=== PATIENT | male | born 1950 | race Caucasian/White ===

== ENCOUNTER 2016-09-10 17:22 | Inpatient (IN) | payer MEDICARE ==
--- NOTE | ~2016-09-10 | HP ---
Unit #: [id number] #: [id number] Patient: KIMBERLEY JULIO [id number] [facility]. [place], [place] [address] [id number] I MR#: [id number] NAME: KIMBERLEY JULIO. ROOM: 311 Age: 66 Sex: M Admission Date: 09/10/2016 : 1950 Attending Physician: Shad Buckley M.D. Primary Care Physician: Lizeth Dsouza M.D. HISTORY AND PHYSICAL CHIEF COMPLAINT Weakness, lightheadedness, dizziness. DISCUSSION This is a 66-year-old gentleman with past medical history of hypertension, coronary artery disease, previous stent, history of congestive heart failure, ejection fraction 20% to 25%, dyslipidemia, diabetes, history of gout, history of stroke in the past, seizure disorder, mood disorder. He is living in the assisted living personal shelter. He was brought to the emergency room with the chief complaint of weakness, lightheadedness, he said that he lives in personal shelter. He spent thirty minutes on Monday outside in the hot, so today lady told him that he is not acting right and he was brought to the emergency room. He said he feels like he has got hot when he was outside on Monday but he feels lightheaded, dizzy. EMS, blood pressure was found on lower side. Currently, he feels better. He is tachycardic on EKG and also on EKG heart rate is 113. He had been having low grade temperature in the ER, 100.1 but he denies any fever or chills, cough, nausea, vomiting, abdominal pain, chest pain or any other complaints. He just said he feels dizzy, weak, and lightheaded. PAST MEDICAL HISTORY 1. History of hypertension. 2. Coronary artery disease with three vessel stent four years ago. 3. History of congestive heart failure, ejection fraction 20% to 25%. 4. Dyslipidemia. 5. Diabetes. 6. Gout. 7. History of stroke in the past. CT scan shows old lacunar infarct. 8. History of seizures. 9. Mood disorder. PAST SURGICAL HISTORY History of cardiac cath and stent. ALLERGIES No known drug allergies. MEDICATIONS FROM HOME Is the followin. Lisinopril 10 mg daily 2. Haloperidol 4 mg p.o. daily 3. Lasix 40 mg daily 4. Remeron 15 mg at bedtime 5. Metformin 500 mg twice a day Unit #: [id number] #: [id number] Patient: KIMBERLEY JULIO 6. Keppra 500 mg twice a day 7. Allopurinol 300 mg daily 8. Plavix 75 mg daily 9. Simvastatin 40 mg daily 10. Potassium chloride 10 mEq p.o. twice a day 11. Celexa 20 mg daily 12. Metoprolol 25 mg p.o. twice daily SOCIAL HISTORY The patient has history of mental disability, does not smoke, does not drink, currently residing with his caregiver in personal shelter, assisted living. REVIEW OF SYSTEMS Negative except in the history of present illness. PHYSICAL EXAMINATION GENERAL: Elderly man, lying in the bed comfortably, currently not in any distress. He is alert, awake, and oriented x3, comfortable, not in any distress. VITAL SIGNS: Current vitals are the following, temperature 100.1, heart rate 110, respiratory rate 20, blood pressure 108/75. Oxygen 95% on room air. HEENT EXAMINATION: Pupils equal reactive to light and accommodation. Head: Normocephalic and atraumatic. NECK: Supple. No jugular venous distention. HEART: S1 and S2, regular rate and rhythm. LUNGS: Clear to auscultation bilaterally. No rhonchi. No wheezing. ABDOMEN: Soft, nontender, and nondistended. Bowel sounds are positive. EXTREMITIES: Inspection normal. No cyanosis, no clubbing, and no edema. NEUROLOGIC: Cranial nerves II through XII intact, no focal neurologic deficit. He has positive tremors on both extremities and the jaws. DIAGNOSTIC STUDIES LABORATORY: laboratory workup is the following, troponin less than 0.05, CPK 141, BNP 54, sodium 134, potassium 3.6, chloride 101, CO2 22, glucose 135, BUN 24, creatinine 1.3. LFT within normal limits. Urinalysis is negative. Troponin less than 0.05. Lactic acid 2.1. INR is 1.1, white count 5, hemoglobin 13, hematocrit 41, platelets 172. IMAGING: Chest x-ray is negative except left lower lobe atelectasis. CT head shows old lacunar infarct. ASSESSMENT/PLAN 1. Weakness, lightheadedness, near syncope with tremors, will observe the patient on monitor bed on telemetry, will ask neurology, Dr. Hartman to evaluate. 2. Sinus tachycardia, he clinically does not look in congestive heart failure, I will give him some IV fluids, one liter of normal saline, reevaluate in the morning. 3. Low grade fever, no source, will monitor repeat temperature in the morning. 4. Hypertension, with blood pressure lower side, hold metoprolol, lisinopril, if blood pressure less than 120. 5. History of coronary artery disease with three vessel stent four years ago. 6. History of congestive heart failure, ejection fraction 20% to 25%. Unit #: [id number] #: [id number] Patient: KIMBERLEY JULIO 7. Dyslipidemia. 8. Diabetes, continue metformin, place on sliding scale. 9. History of stroke. 10. History of gout. 11. History of seizures. 12. History of mood disorder. 13. DVT prophylaxis, will place the patient on Lovenox. Dictated by Norberto Felix TD: 09/11/2016 12:31 JOB #: [id number] HISTORY AND PHYSICAL Page 1 of 1 X X HISTORY AND PHYSICAL
--- NOTE | ~2016-09-10 | CO ---
Unit #: [id number] #: [id number] Patient: KIMBERLEY JULIO [id number] [facility]. [place], [place] [address] [id number] I MR#: [id number] NAME: KIMBERLEY JULIO ROOM: 311 Age: 66 Sex: M Admission Date: 09/11/2016 : 1950 Attending Physician: Shad Buckley M.D. Primary Care Physician: Lizeth Dsouza M.D. CONSULTATION REPORT REQUESTING PHYSICIAN Dr. Buckley. REASON FOR CONSULTATION Fever. HISTORY OF PRESENT ILLNESS This is a 66-year-old gentleman, who lives in assisted nursing facility. He does have multiple medical problems and was admitted through emergency room with fever, weakness, lightheadedness. He was found to have a fever of 101 and some dehydration. He told me that he remained in sun for quite sometime on Monday, following which he developed fever, lightheadedness, and generalized weakness. He did not have any leukocytosis. Chest x-ray and urinalysis were negative. He does not have any focal symptoms. At the present time, he is doing much better. He thinks he is almost back to normal. He denies any headache, cough, dysuria, abdominal pain, nausea, vomiting, or diarrhea at this time. PAST MEDICAL HISTORY Hypertension, coronary artery disease with history of PCI, congestive heart failure with EF of 20% to 25%, hyperlipidemia, diabetes, gout, previous stroke, history of seizure, and mood disorder. PAST SURGICAL HISTORY Cardiac stenting. ALLERGIES None. HOME MEDICATIONS Lisinopril, haloperidol, Lasix, Remeron, metformin, Keppra, allopurinol, Plavix, simvastatin, Celexa, metoprolol. In the hospital, he is on Zosyn, Zocor, Zestril, Zyloprim, Plavix, haloperidol, Keppra, furosemide, Toprol, Celexa, Tylenol, Remeron, NovoLog, Lovenox. PERSONAL HISTORY He lives in assisted nursing facility. No history of active alcohol, drug, or tobacco abuse. He told me that he does ambulate with assistance. FAMILY HISTORY Unknown. Unit #: [id number] #: [id number] Patient: KIMBERLEY JULIO SYSTEMIC REVIEW Fever, generalized weakness, and exhaustion. There are no other systemic symptoms on detailed symptomatic enquiry. PHYSICAL EXAMINATION GENERAL: Reveals an elderly white male, who is awake and alert, in no acute distress. He is fully conscious and oriented to time, place, and person. VITAL SIGNS: Temperature is 97.8 with a T-max of 102.3 yesterday at 9:00 p.m. Heart rate is 100, respirations 18, blood pressure is 108/73. He looks slightly pale. NECK: Supple. There is no JVD or edema. LUNGS: Clear to percussion and auscultation. HEART: Sounds normal. ABDOMEN: Soft and nontender without organomegaly or ascites. Bowel sounds normal. NEUROLOGICAL: He is awake and follows commands and moves all 4 extremities. DIAGNOSTIC STUDIES LABORATORY RESULTS: Blood cultures negative to date. Sodium 133, potassium 3.4, chloride 98, CO2 of 27, BUN 25, creatinine 1.4. Lactic acid 1.6. CPK 141. Urinalysis negative for UTI. White count 5.3, hemoglobin 13.9, platelets 172. IMAGING STUDIES: Head CT was negative. Chest x-ray, no acute infiltrate. IMPRESSION Fever of unknown etiology given history of exposure to sun exhaustion and dehydration. Heat exhaustion is a likely possibility. Since the patient has improved significantly, since he was brought to the hospital. Infection is unlikely, but cannot be ruled out. RECOMMENDATIONS We will change Zosyn to ceftriaxone to narrow the spectrum. Wait for the cultures of the blood and urine. I will check procalcitonin level. If the patient continues to improve and septic workup is negative, antibiotic can be discontinued in the next one to two days. Dictated by... Norberto Malone/tuan TD: 09/11/2016 16:04 JOB #: [id number] Unit #: [id number] #: [id number] Patient: KIMBERLEY JULIO CONSULTATION REPORT Page 1 of 1 X Blu Cohen MD CONSULTATION REPORT
--- NOTE | ~2016-09-10 | CO ---
Unit #: [id number] #: [id number] Patient: KIMBERLEY JULIO [id number] [facility] [address] [facility]. [place], [place] [address] [id number] My MR#: [id number] NAME: KIMBERLEY JULIO. ROOM: 311 Age: 66 Sex: M Admission Date: 09/11/2016 : 1950 Attending Physician: Shad Buckley M.D. Primary Care Physician: Lizeth Dsouza M.D. CONSULTATION REPORT REASON FOR CONSULTATION 1. Weakness. 2. Lightheadedness. 3. Near-syncope. 4. Tremor. 5. Prior history of seizures. PATIENT IDENTIFICATION This is a 66-year-old, right-handed, white male, who is evaluated in room 311 at [facility]. SOURCE OF INFORMATION The patient and previous records. I have seen this patient several times in the past. PROBLEM LIST 1. Possible exposure to sun with exhaustion and dehydration and fever, the cause of which is otherwise not determined. 2. History of hypertension. 3. History of coronary artery disease with three vessel stent placed several years ago. 4. History of congestive heart failure with low ejection fraction of 20% to 25%. 5. Dyslipidemia. 6. Diabetes. 7. Gout. 8. History of stroke in the past. 9. History of seizures probably secondary to other conditions like stroke, sulfa. 10. Mood disorder. 11. History of cardiac cath and stent. 12. He also has mental debility, otherwise not determined or specifically diagnosed. 13. History of allergic rhinitis. HISTORY OF PRESENT ILLNESS This is a 66-year-old gentleman with multiple medical issues as discussed above and he went outside and stayed in. He is living in assisted living personal assisted. He was brought to the emergency room with complaints of weakness and lightheadedness. He spent 30 minutes on Monday outside in the hot sun and afterwards he was not talking right. When I saw him, he was getting much better. He has some right-sided tremors. There is nothing suggesting seizure. There is nothing suggesting new stroke so far Unit #: [id number] #: [id number] Patient: KIMBERLEY JULIO and if it was, he is outside the window. He is taking his Keppra and he did not pass out and I discussed with Dr. Jean Baptiste and he is also thinking it is exposure to the sun rather than something like PIGGYBACK CLERK infection, but full workup is in progress. No neck stiffness. No headaches. He is essentially back to baseline. He did not miss any medication. He is taking medication. PAST MEDICAL HISTORY As discussed above. ALLERGIES None. HOME MEDICATIONS Lisinopril 10 mg, haloperidol 4 mg, Lasix 40 mg, Remeron 15 mg, metformin 500 mg b.i.d., Keppra 500 mg b.i.d., allopurinol 300 mg daily, Plavix 75 mg daily, simvastatin 40 mg daily, potassium chloride 10 mEq b.i.d., Celexa 20 mg, metoprolol 25. FAMILY HISTORY Reviewed and nothing suggesting primary neurologic condition, seizure, or others. SOCIAL HISTORY He is living in a personal assisted. He has mental debility or disability. No tobacco, alcohol, or drug use. REVIEW OF SYSTEMS Fatigue and tremors, otherwise nothing much reported. PHYSICAL EXAMINATION VITAL SIGNS: Temperature was 97.8, pulse was 104, respirations 16, blood pressure 104/66, O2 saturations are 97%. Weight of 168 pounds. BMI was 24. His T-max was 103. NEUROLOGIC: The patient is awake. He has slow responses, but appropriate. He is oriented. He can name and he can follow commands. No right or left confusion. No finger agnosia. Cranial examination demonstrates respond to threats in all matthews. Eye movements are conjugate. I did not see any ptosis. I did not see any nystagmus. Extraocular movements are intact. Sensation on the face and scalp are normal. Strength of muscles of facial expression normal. Hearing seemed to be intact. Tongue was midline. I could not visualize the oropharynx or uvula. Head turning was spontaneous. No neck stiffness was seen. On motor examination, he has normal bulk, tone. The tone is somewhat increased, but otherwise nonspecific. His strength was 5-/5. Sensory examination intact for soft touch and pain sensation. No Unit #: [id number] #: [id number] Patient: KIMBERLEY JULIO was seen. Romberg was not evaluated. Gait examination was deferred. I could not get any reflexes. DIAGNOSTIC STUDIES LABORATORY RESULTS: Upon admission; his glucose was 135, BUN was 24, creatinine was 1.3. Lactic acid was 2.1. White count was 5.3, H and H of 13.9 and 41.2, platelet count was 172. Urinalysis really did not show anything major. IMAGING STUDIES: CT head was reviewed. IMPRESSION Heat exposure with fever, very nonspecific otherwise. He is back to essentially baseline. His fever is being evaluated. He has not had a seizure, so I will observe him and see how things go. I will observe and see how he does in the morning and if he is better, then we will just observe. Otherwise, we will re-evaluate and treat as indicated. Call me for any other question, issue, or concerns. Dictated by... Norberto Boswell/tuan TD: 09/13/2016 03:16 JOB #: [id number] CONSULTATION REPORT Page 1 of 1 X Frank Hartman MD X CONSULTATION REPORT
--- NOTE | ~2016-09-10 | CR72 ---
[facility] A Service of [facility] & [facility] RADIOLOGY TEXT RESULTS PATIENT: KIMBERLEY JULIO LOCATION: [facility] 311-01 : [birth year] UNIT #: [id number] AGE: [address]: Shad Buckley MD SEX: M ORDER DR: [id number] [facility] [address] [facility]. [place], [place] [address] [id number] I MR#: [id number] Acc #: [id number] NAME: KIMBERLEY JULIO. : 1950 SEX: M STUDY DATE/TIME: 09/10/2016 18:08 UNIT: CEDOF ROOM: [id number] STUDY DESCRIPTION: CR Chest Single View Portable Attending Physician: Juancarlos Pisano M.D. Ordering Physician: Blane Ayala D.O. Primary Care Physician: Lizeth Dsouza M.D. MEDICAL IMAGING REPORT This report is preliminary unless electronic signature is present EXAM Single view of the chest, dated 09/10/16 at 1808 hours. COMPARISON Chest, 2 views dated 09/26/11 at 1617 hours. HISTORY Hypotension, weakness and lightheadedness since 09/09/16. FINDINGS Single view of the chest was obtained. Minimal subsegmental atelectasis is in the left lung base. Remaining lungs appear to be well aerated in this poor inspiratory film. Heart and mediastinum are within normal limits. Arthritic changes are in the right shoulder joint. Dictated by... Kalia Garces M.D. THIS IS AN ELECTRONICALLY VERIFIED REPORT Kalia Garces M.D. at 09/12/2016 8:33 PM CPR/jt TD: 09/10/2016 22:29 JOB #: [id number] MEDICAL IMAGING REPORT Page 1 of 1 COPY
--- NOTE | ~2016-09-10 | DS ---
Unit #: [id number] #: [id number] Patient: KIMBERLEY JULIO [id number] [address] [id number] I MR#: [id number] NAME: KIMBERLEY JULIO. ROOM: 311 Age: 66 Sex: M Admission Date: 09/10/2016 : 1950 Discharge Date: Attending Physician: Shad Buckley M.D. Primary Care Physician: Lizeth Dsouza M.D. DISCHARGE SUMMARY DIAGNOSES ON ADMISSION 1. Fever. 2. Near syncope. 3. Weakness. DIAGNOSES ON DISCHARGE 1. Fever, etiology unclear, improved. 2. Near syncope, improved. 3. Coronary artery disease, status post stent. 4. Chronic systolic congestive heart failure with ejection fraction of 20% to 25%. 5. Dyslipidemia. 6. Hypertension. 7. Type 2 diabetes mellitus. 8. Gout. 9. History of cerebrovascular accident. 10. Seizure disorder. 11. Mood disorder. CONSULTATIONS 1. Dr. Cohen in infectious disease consultation. 2. Dr. Hartman in neurology consultation. DIAGNOSTIC STUDIES LABORATORY: Patient's creatinine is 1, sodium 135, potassium 3.8. WBC 3.8, hemoglobin 12.3, platelet count 134,000. Patient's blood culture did not reveal any growth so far. Influenza A and B screen were negative. Patient's urinalysis did not reveal any white blood cells. TSH level was 0.72. BNP was 54. IMAGING: Patient's repeat chest x-ray revealed poor inspiratory efforts but the lungs were relatively well aerated. CT scan of head did not reveal any evidence of acute intracranial abnormality. HOSPITAL COURSE A 70-year-old male was admitted to [facility] with fever and weakness. Details are as per admission H and P. Fever: Patient had elevated fever. He was seen by Dr. Cohen in infectious disease consultation. No obvious source was clear. It was thought that patient's fever could be either viral syndrome as patient denies any heat exhaustion and was not outside in heat. Unit #: [id number] #: [id number] Patient: KIMBERLEY JULIO Near syncope: Patient had episode of near syncope which could be from the fever and dehydration. Dr. Hartman has ordered a MRI scan which did not reveal any acute intracranial abnormality. There was generalized atrophy present. Patient's lab work today revealed creatinine of 1.2, sodium 134, potassium 3.8. WBC 3.9, hemoglobin 12.7, platelet count 124,000. PHYSICAL EXAMINATION GENERAL: Today on physical examination, patient is comfortable, wants to go home. VITAL SIGNS: Reveal temperature of 97.6, pulse 83 per minute, respiratory rate 18 per minute, blood pressure 102/57. HEENT: Revealed no conjunctival congestion. Sclerae is nonicteric. NECK: Supple. Trachea is central. RESPIRATORY: Revealed decreased breath sounds bilaterally. There are no wheezes or crackles. HEART: Regular rate and rhythm. S1, S2. ABDOMEN: Soft, nontender. Bowel sounds are present in all four quadrants. EXTREMITIES: Reveal trace pedal edema. SKIN: Warm and dry. RECOMMENDATIONS ON DISCHARGE Condition is stable. Activity as tolerated. MEDICATIONS 1. Tylenol 650 mg p.o. q.6 hours p.r.n. 2. Keppra 500 mg p.o. b.i.d. 3. Celexa 20 mg p.o. every morning. 4. Remeron 15 mg p.o. nightly. 5. Metformin 500 mg p.o. b.i.d. Restart in three days. 6. Haldol 2 mg p.o. b.i.d. 7. Metoprolol 25 mg p.o. b.i.d. 8. Lasix 40 mg p.o. every morning. 9. Zocor 40 mg p.o. nightly. 10. Lisinopril 10 mg p.o. daily. 11. Omnicef 300 mg p.o. b.i.d. for four days. 12. Allopurinol 100 mg p.o. daily. I have decreased patient's dose of allopurinol to 100 mg because he has some leukopenia and he did not have any signs of gout, so allopurinol dose is 100 mg daily. 13. Plavix 75 mg p.o. daily. 14. Potassium 10 mEq p.o. daily. Patient is still having fever off and on but infectious disease has seen patient and has recommended that patient can be discharged home as clinically he feels much better and his workup did not reveal any source. FOLLOWUP 1. Patient is advised to follow up with primary care physician in one week and have a CBC and BMP done. 2. Patient is advised to call primary care physician or go to ER if his condition changes. 3. We will arrange home health regarding home safety assessment. The plan has been discussed with patient's caregiver. The total time spent was 32 minutes. Unit #: [id number] #: [id number] Patient: NORIKIMBERLEY Dictated by... Norberto José TD: 09/14/2016 16:55 JOB #: [id number] CC: Lizeth Dsouza M.D. DISCHARGE SUMMARY Page 1 of 1 X Shad Buckley MD X DISCHARGE SUMMARY
--- NOTE | ~2016-09-10 | MR17 ---
[facility] A Service [facility] RADIOLOGY TEXT RESULTS PATIENT: KIMBERLEY JULIO LOCATION: [facility] 311- : [birth year] UNIT #: [id number] AGE: [address]: Shad Buckley MD SEX: M ORDER DR: [id number] [facility] [address] [facility]. [place], [place] [address] [id number] I MR#: [id number] Acc #: [id number] NAME: KIMBERLEY JULIO. : 1950 SEX: M STUDY DATE/TIME: 09/13/2016 16:49 UNIT: [address] ROOM: [facility] STUDY DESCRIPTION: MR Brain WWo Contrast Attending Physician: Shad Buckley M.D. Ordering Physician: Onelia Mccurdy A.P.R.N. Primary Care Physician: Lizeth Dsouza M.D. MRI CENTER REPORT This report is preliminary unless electronic signature is present. EXAM MRI of the brain with and without contrast HISTORY 66-year-old male, weakness, near-syncope, disoriented MondaySeptember 09, seizure 1 year ago. Complains of right lower facial weakness. COMPARISON MRI brain with without contrast 03/31/2014 FINDINGS Multiplanar multiecho imaging was performed of the brain to include axial FLAIR and diffusion-weighted images. Additional axial T1-weighted images were performed following IV gadolinium. The examination demonstrates mild prominence of ventricles, sulci and basilar cisterns compatible with generalized atrophy. There is increased T2 signal within the periventricular white matter most likely representing the sequela of chronic microvascular disease. No large vessel infarct. No restricted diffusion identified to suggest an acute infarct. No mass, mass effect or midline shift. No acute intracranial hemorrhage. Normal intracranial enhancement postcontrast. Bony calvaria, skull base, mastoids and sinuses unremarkable. IMPRESSION 1. No acute intracranial abnormality identified. 2. Generalized atrophy with evidence of chronic microvascular disease primarily within the periventricular white matter. Dictated by.Yancy Montes M.D. [facility] A Service of [facility] RADIOLOGY TEXT RESULTS PATIENT: KIMBERLEY JULIO LOCATION: [facility] 311-01 : [birth year] UNIT #: [id number] AGE: [address]: Shad Buckley MD SEX: M ORDER DR: THIS IS AN ELECTRONICALLY VERIFIED REPORT Estela Montes M.D. at 09/14/2016 2:48 PM Flaco TD: 09/14/2016 00:33 JOB #: [id number] MRI CENTER REPORT Page 1 of 1 COPY
--- NOTE | ~2016-09-10 | CR63 ---
[facility] A Service of [facility] & [facility] RADIOLOGY TEXT RESULTS PATIENT: KIMBERLEY JULIO LOCATION: [facility] 311- : [birth year] UNIT #: [id number] AGE: [address]: Shad Buckley MD SEX: M ORDER DR: [id number] [facility] [address] [facility]. [place], [place] [address] [id number] I MR#: [id number] Acc #: [id number] NAME: KIMBERLEY JULIO. : 1950 SEX: M STUDY DATE/TIME: 09/11/2016 13:27 UNIT: [address] ROOM: [facility] STUDY DESCRIPTION: CR Chest 2 View Attending Physician: Shad Buckley M.D. Ordering Physician: Shad Buckley M.D. Primary Care Physician: Lizeth Dsouza M.D. MEDICAL IMAGING REPORT This report is preliminary unless electronic signature is present EXAM Two views chest dated 09/11/2016. COMPARISON Single view of the chest dated 09/10/2016. HISTORY Weakness, near syncope, shortness of air for 2 days. FINDINGS Two views of the chest were obtained. Lungs appear to be relatively well aerated in the poor inspiratory films. Heart is probably within normal size, given the phase of respiration. Small endplate osteophytes are in the thoracic spine. There is mild to moderate right shoulder osteoarthritic changes. Dictated by... Kalia Garces M.D. THIS IS AN ELECTRONICALLY VERIFIED REPORT Kalia Garces M.D. at 09/12/2016 8:35 PM CPR/psc TD: 09/11/2016 20:33 JOB #: [id number] MEDICAL IMAGING REPORT Page 1 of 1 COPY
--- NOTE | ~2016-09-10 | EKG ---
PATIENT: KIMBERLEY JULIO UNIT #: [id number] Ventricular Rate: 113 BPM Atrial Rate: 113 BPM P-R Interval: 174 ms QRS Duration: 94 ms Q-T Interval: 344 ms QTC Calculation(Bezet): 471 ms P [place]: 36 degrees Calculated R [place]: -26 degrees Calculated T [place]: 69 degrees Diagnosis Line: Sinus tachycardia with occasional Premature Diagnosis Line: ventricular complexes Diagnosis Line: Inferior infarct (cited on or before 11-NOV-2013) Diagnosis Line: Abnormal ECG Diagnosis Line: When compared with ECG of 31-MAY-2014 18:21, Diagnosis Line: Premature ventricular complexes are now Present Diagnosis Line: Confirmed by GT RESEE, TOBY ([id number]) on Diagnosis Line: 09/11/2016 11:09:16 AM INTERPRETING FERNANDO RICARDO
--- NOTE | ~2016-09-10 | EKG ---
PATIENT: KIMBERLEY JULIO UNIT #: [id number] Ventricular Rate: 114 BPM Atrial Rate: 114 BPM P-R Interval: 178 ms QRS Duration: 94 ms Q-T Interval: 334 ms QTC Calculation(Bezet): 460 ms P [place]: 29 degrees Calculated R [place]: -19 degrees Calculated T [place]: 85 degrees Diagnosis Line: Sinus tachycardia Diagnosis Line: Inferior infarct (cited on or before 11-NOV-2013) Diagnosis Line: Abnormal ECG Diagnosis Line: When compared with ECG of 10-SEP-2016 18:03, Diagnosis Line: (unconfirmed) Diagnosis Line: Premature ventricular complexes are no longer Diagnosis Line: Present Diagnosis Line: Confirmed by GT REESE, TOBY ([id number]) on Diagnosis Line: 09/11/2016 11:11:33 AM INTERPRETING MD: DAVION
--- NOTE | ~2016-09-10 | CT71 ---
[facility] A Service of [facility] & [facility] RADIOLOGY TEXT RESULTS PATIENT: KIMBERLEY JULIO LOCATION: [facility] 311-01 : [birth year] UNIT #: [id number] AGE: [address]: Shad Buckley MD SEX: M ORDER DR: [id number] [facility] [address] [place], [place] [address] [id number] MR#: [id number] Acc #: [id number] NAME: KIMBERLEY JULIO. : 1950 SEX: M STUDY DATE/TIME: 09/10/2016 18:33 UNIT: CEDOF ROOM: [id number] STUDY DESCRIPTION: CT Head Wo Contrast Attending Physician: Juancarlos Pisano M.D. Ordering Physician: Blane Ayala D.O. Primary Care Physician: Lizeth Dsouza M.D. MEDICAL IMAGING REPORT This report is preliminary unless electronic signature is present EXAM CT head without contrast dated 09/10/[address] head without contrast dated 05/31/2014. HISTORY Weakness, hypotension since yesterday. FINDINGS CT of the head was obtained without contrast in the axial plane. This CT exam was performed with one or more of the following radiation dose reduction techniques: automatic control, adjustment of mA and/or kV according to patient size, and iterative reconstruction. Motion artifact is noted in the images along the skull base and they were repeated. Patchy hypodensities are noted in the white matter particularly in the periventricular region. Smaller hypodensity is noted in bilateral basal ganglia, stable. No obvious acute intracranial hemorrhage, space-occupying intracranial mass or midline shift is seen. Ventricles appear to be age appropriate, stable. No significant new or acute abnormality is noted intracranially. Mastoid air cells and paranasal sinuses are well-aerated. There is minimal nasal septal deviation to the left. Bones, orbits and the ocular structures are grossly unremarkable. Atherosclerotic vascular changes are noted in bilateral intracranial internal carotid arteries and proximal vertebral arteries with likely some associated narrowing due to atherosclerotic disease, stable. IMPRESSION 1. No evidence of acute intracranial abnormality. 2. Scattered hypodensities are noted in the brain, stable and likely related to chronic microvascular ischemic change and old lacunar infarcts. [facility] A Service of [facility] & [facility] RADIOLOGY TEXT RESULTS PATIENT: KIMBERLEY JULIO LOCATION: [facility] 311-01 : [birth year] UNIT #: [id number] AGE: [address]: Shda Buckley MD SEX: M ORDER DR: 3. MRI is more sensitive and specific in evaluation of early acute stroke. Otherwise no obvious acute intracranial hemorrhage, hydrocephalus or midline shift. Dictated by... Kalia Garces M.D. THIS IS AN ELECTRONICALLY VERIFIED REPORT Kalia Garces M.D. at 09/12/2016 8:33 PM CPR/rnr TD: 09/10/2016 22:46 JOB #: [id number] MEDICAL IMAGING REPORT Page 1 of 1 COPY
[~2016-09-10 17:22] MED LIST: CITALOPRAM HBR40 MG PO; CLOPIDOGREL75 MG PO; HALOPERIDOL2 MG PO; K-DUR10 MEQ PO; KEPPRA500 MG PO; LASIX PO; METOPROLOL SUCC25 MG PO; REMERON15 MG PO; SIMVASTATIN40 MG PO; ZESTRIL10 MG PO; ZYLOPRIM100 MG PO
[2016-09-10 18:17] LABS: BASOPHIL% 0.4 % (0-2.5); HEMATOCRIT 41.2 % (38.0-50.0); HEMOGLOBIN 13.9 gm/dL (13.0-16.0); LYMPHOCYTE# 0.5 X10e3 (1.0-3.5); LYMPHOCYTE% 8.9 % (17.0-45.0); MEAN CORPUSCULAR HEMOGLOBIN 31.6 PG (28-34); MEAN CORPUSCULAR HGB CONC 33.6 g/dL (30-36); MEAN PLATELET VOLUME 8.1 FL (6.5-11.5); MONOCYTE# 0.3 X10e3 (0-1.0); NEUTROPHIL# 4.5 X10e3 (1.5-7.1); NEUTROPHIL% 85.7 % (40-75); PLATELET COUNT 172 X10e3 (140-420); RED BLOOD COUNT 4.38 X10e (3.90-5.60); RED CELL DISTRIBUTION WIDTH 13.2 % (11.0-15.5); WHITE BLOOD COUNT 5.3 X10e3 (4.0-10.5)
[2016-09-10 18:19] LABS: DIFF IND NO
[2016-09-10 18:27] LABS: URINE SOURCE CLEAN CATCH
[2016-09-10 18:29] LABS: INR 1.1; PARTIAL THROMBOPLASTIN TIME 27.3 SECONDS (23.5-31.3); PROTHROMBIN TIME (PATIENT) 11.4 SECONDS (10.0-11.7)
[2016-09-10 18:33] LABS: URINE APPEARANCE CLEAR; URINE BILIRUBIN NEG (NEG); URINE BLOOD NEG (NEG); URINE COLOR YELLOW; URINE GLUCOSE NEG (NEG); URINE KETONE NEG (NEG); URINE LEUKOCYTE ESTERASE NEG (NEG); URINE NITRATE NEG (NEG); URINE PROTEIN NEG (NEG); URINE UROBILINOGEN 0.2 MG/DL (NEG)
[2016-09-10 18:35] LABS: POC - CKMB <1.0 ng/mL (0.0-7.9); POC - TROPONIN <0.05 ng/mL (<=0.05)
[2016-09-10 18:35] LABS: CULTURE INDICATED? NO
[2016-09-10] MEDS ORDERED: SIMVASTATIN40 MG PO (18:37)
[2016-09-10] MEDS ORDERED: CLOPIDOGREL75 MG PO (18:37)
[2016-09-10] MEDS ORDERED: KLOR-CON SPRIN10 MEQ PO (18:38)
[2016-09-10] MEDS ORDERED: CELEXA20 MG PO (18:38)
[2016-09-10] MEDS ORDERED: REMERON15 MG PO (18:39)
[2016-09-10] MEDS ORDERED: LASIX PO (18:39)
[2016-09-10] MEDS ORDERED: METOPROLOL SUCC25 MG PO (18:39)
[2016-09-10] MEDS ORDERED: METFORMIN HCL500 M3 PO (18:40)
[2016-09-10] MEDS ORDERED: ALLOPURINOL300 MG PO (18:40)
[2016-09-10] MEDS ORDERED: LISINOPRIL10 MG PO (18:40)
[2016-09-10] MEDS ORDERED: LEVETIRACETAM500 M1 PO (18:40)
[2016-09-10] MEDS ORDERED: HALOPERIDOL2 MG PO (18:41)
[2016-09-10 18:44] LABS: ALBUMIN SERUM 4.4 g/dL (3.5-5.0); BILIRUBIN, DIRECT 0.1 mg/dL (0.0-0.2); BILIRUBIN,INDIRECT 0.6 mg/dL (0.0-0.9); BILIRUBIN,TOTAL 0.7 mg/dL (0.2-2.0); BUN/CREATININE RATIO 18.46; CALCIUM SERUM 9.1 mg/dL (8.4-10.2); CREATININE SERUM 1.3 mg/dL (0.6-1.4); GLOM FILT RATE Estimated 57.3 mL/min (>60); POTASSIUM 3.6 mmol/L (3.5-5.1); PROTEIN TOTAL SERUM 7.7 g/dL (6.0-8.3)
[2016-09-10 19:59] LABS: POC - CKMB <1.0 ng/mL (0.0-7.9); POC - TROPONIN <0.05 ng/mL (<=0.05)
[2016-09-11 05:49] LABS: BUN/CREATININE RATIO 17.85; CALCIUM SERUM 8.7 mg/dL (8.4-10.2); CREATININE SERUM 1.4 mg/dL (0.6-1.4); GLOM FILT RATE Estimated 52.4 mL/min (>60); POTASSIUM 3.4 mmol/L (3.5-5.1)
[2016-09-11 17:01] LABS: INFLUENZA A NEG (NEG); INFLUENZA B NEG (NEG)
[2016-09-12 05:46] LABS: HEMATOCRIT 36.6 % (38.0-50.0); HEMOGLOBIN 12.3 gm/dL (13.0-16.0); MEAN CELL VOLUME 93.3 FL (83-96); MEAN CORPUSCULAR HEMOGLOBIN 31.4 PG (28-34); MEAN CORPUSCULAR HGB CONC 33.6 g/dL (30-36); MEAN PLATELET VOLUME 8.3 FL (6.5-11.5); RED BLOOD COUNT 3.92 X10e (3.90-5.60); RED CELL DISTRIBUTION WIDTH 13.6 % (11.0-15.5); WHITE BLOOD COUNT 3.8 X10e3 (4.0-10.5)
[2016-09-12 06:24] LABS: CALCIUM SERUM 8.4 mg/dL (8.4-10.2); GLOM FILT RATE Estimated 78.6 mL/min (>60); POTASSIUM 3.8 mmol/L (3.5-5.1)
[2016-09-13 05:28] LABS: HEMATOCRIT 38.3 % (38.0-50.0); HEMOGLOBIN 12.9 gm/dL (13.0-16.0); MEAN CELL VOLUME 93.9 FL (83-96); MEAN CORPUSCULAR HEMOGLOBIN 31.7 PG (28-34); MEAN CORPUSCULAR HGB CONC 33.7 g/dL (30-36); MEAN PLATELET VOLUME 8.7 FL (6.5-11.5); RED BLOOD COUNT 4.08 X10e (3.90-5.60); RED CELL DISTRIBUTION WIDTH 13.4 % (11.0-15.5)
[2016-09-14 05:47] LABS: HEMATOCRIT 37.7 % (38.0-50.0); HEMOGLOBIN 12.7 gm/dL (13.0-16.0); MEAN CORPUSCULAR HEMOGLOBIN 31.2 PG (28-34); MEAN CORPUSCULAR HGB CONC 33.6 g/dL (30-36); MEAN PLATELET VOLUME 8.7 FL (6.5-11.5); RED BLOOD COUNT 4.06 X10e (3.90-5.60); RED CELL DISTRIBUTION WIDTH 13.5 % (11.0-15.5); WHITE BLOOD COUNT 3.9 X10e3 (4.0-10.5)
[2016-09-14 06:34] LABS: ALBUMIN SERUM 3.4 g/dL (3.5-5.0); BILIRUBIN,TOTAL 0.8 mg/dL (0.2-2.0); CREATININE SERUM 1.2 mg/dL (0.6-1.4); GLOM FILT RATE Estimated 63.1 mL/min (>60); POTASSIUM 3.8 mmol/L (3.5-5.1); PROTEIN TOTAL SERUM 6.4 g/dL (6.0-8.3); URIC ACID 4.9 mg/dL (2.6-7.2)
[2016-09-14] MEDS ORDERED: TYL325 PO (15:17)
[2016-09-14] MEDS ORDERED: OMNICEF300 MG PO (15:19)
== END 2016-09-14 17:36 | disposition home or self-care (01) | DRG 312 ==
LOC: CED 17:22 → CEDOF 20:00 → CED 20:09 → CEDOF 23:03 → C3A PCU 23:03 → CEDOF 09-11 18:19 → C3A PCU 09-11 19:19
PROVIDERS: Emergency Medicine; Internal Medicine
DX: R55 Syncope and collapse (principal); I11.0 Hypertensive heart disease with heart failure; I50.22 Chronic systolic (congestive) heart failure; R50.9 Fever, unspecified; I25.10 Atherosclerotic heart disease of native coronary artery without angina pectoris; Z95.5 Presence of coronary angioplasty implant and graft; E78.5 Hyperlipidemia, unspecified; E11.9 Type 2 diabetes mellitus without complications; Z79.84 Long term (current) use of oral hypoglycemic drugs; M10.9 Gout, unspecified; Z86.73 Personal history of transient ischemic attack (TIA), and cerebral infarction without residual deficits; G40.909 Epilepsy, unspecified, not intractable, without status epilepticus; F39 Unspecified mood [affective] disorder; E86.0 Dehydration; R25.1 Tremor, unspecified; R00.0 Tachycardia, unspecified; T67.5XXA Heat exhaustion, unspecified, initial encounter; X58.XXXA Exposure to other specified factors, initial encounter; R29.810 Facial weakness
CPT/HCPCS: 36415; 70450; 70553; 71010; 71020; 80048; 80053; 80076; 81003; 82308; 82550; 82553; 82947; 83605; 83880; 84443; 84484; 84550; 85025; 85027; 85610; 85730; 87040; 87804; 93005; 96360; 97116; 97161; 99285; A9577; G8978-GP; G8979-GP; G8980-GP; J0696; J1650; J1815; J2060